=== PATIENT | male | born 1990 | race Caucasian/White ===

== ENCOUNTER 2018-04-22 22:23 | Emergency (ER) | payer BC, OTHER ==
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
--- NOTE | 2018-04-23 08:25 | RAD REPORT ---
EXAM DESCRIPTION: RAD - Hand Left 3 View - 04/22/2018 11:59 pm CLINICAL HISTORY: injury Trauma, pain COMPARISON: No comparisons FINDINGS: Transverse fracture involves the shaft of the fifth metacarpal with mild angulation. Mild adjacent soft tissue swelling is seen. No dislocation evident. IMPRESSION: Fifth metacarpal shaft fracture.
== END 2018-04-23 00:28 | disposition home or self-care (01) ==
LOC: ER 22:23
PROC: 2W3DX1Z Immobilization of Left Lower Arm using Splint (ICD-10-PCS; principal; 2018-04-23)
DX: S62.317A Displaced fracture of base of fifth metacarpal bone, left hand, initial encounter for closed fracture (principal); W22.09XA Striking against other stationary object, initial encounter; Y93.9 Activity, unspecified; Y92.9 Unspecified place or not applicable
CPT/HCPCS: 99284